=== PATIENT | male | born 1980 | race Caucasian/White ===

== ENCOUNTER 2017-06-17 14:57 | Emergency (ER) | payer SELFPAY, OTHER ==
[2017-06-17] MEDS: IBUPROFEN 600 MG TABLET. PO (16:15)
[2017-06-17] MEDS: ONDANSETRON PF 4 MG/2 ML VIAL. IV (17:51)
[2017-06-17] MEDS: fentaNYL PF VIAL 100 MCG/2 ML VIAL IV (17:54)
== END 2017-06-17 20:47 | disposition home or self-care (01) ==
LOC: ER 14:57
DX: S62.316A Displaced fracture of base of fifth metacarpal bone, right hand, initial encounter for closed fracture (principal); S43.101A Unspecified dislocation of right acromioclavicular joint, initial encounter; S16.1XXA Strain of muscle, fascia and tendon at neck level, initial encounter; S09.90XA Unspecified injury of head, initial encounter; T71.9XXA Asphyxiation due to unspecified cause, initial encounter; F31.9 Bipolar disorder, unspecified; F12.10 Cannabis abuse, uncomplicated; F10.20 Alcohol dependence, uncomplicated; Z91.013 Allergy to seafood; Y04.0XXA Assault by unarmed brawl or fight, initial encounter; V43.52XA Car driver injured in collision with other type car in traffic accident, initial encounter; Y93.I9 Activity, other involving external motion; Y92.410 Unspecified street and highway as the place of occurrence of the external cause; Y99.8 Other external cause status
CPT/HCPCS: 29125; 70450; 71045; 72040; 72125; 72141; 73030; 73110; 73130; 96374; 96375; 99284-25; J2405; J3010

== ENCOUNTER 2017-11-25 00:36 | Emergency (ER) | payer SELFPAY ==
[~2017-11-25] VITALS: Ht 175.3 cm; Wt 65.8 kg
[~2017-11-25 00:36] MED LIST: NAPR375T5 PO; OXYC-323 PO
[2017-11-25 00:40] VITALS: BP 127/80
[2017-11-25] MEDS ORDERED: LIDOCAINE 1%/EPI 1:100,000 20 ML VIAL. INJ ONE (01:30)
[2017-11-25] MEDS ORDERED: NEOMY/BACITR/POLYMYXIN OINT PACKET. TP ONE (01:30)
--- NOTE | 2017-11-25 02:33 | PHYS DOC ---
Past Medical History Past Medical History: Bipolar Additional Past Medical Histor: BIPOLAR Past Surgical History: Other Additional Past Surgical Histo: "VERICOUS VEIN" TO TESTICLE Alcohol Use: Heavy Drug Use: Marijuana, Methamphetamine Adult General Chief Complaint Chief Complaint: LACERATION/AVULSION HPI HPI Patient is a 37-year-old male who presents to the emergency department complaining of a cut on the palm of his right hand. Patient states that he was installing a mirror in his home when he pushed too hard and it broke and cut his hand. Review of Systems Review of Systems Constitutional: Denies fever or chills [] Respiratory: Denies cough or shortness of breath [] Cardiovascular: Denies chest pain and palpitations[] Integument: Complains of laceration on palm of right hand[] Complete systems were reviewed and found to be within normal limits, except as documented in this note. Current Medications Current Medications Current Medications Medications (Trade) Dose Ordered Sig/Liyah Start Time Stop Time Status Last Admin Dose Admin Lidocaine/ Epinephrine (LIDOCAINE 1%-EPI 1:100,000 Multi-Dose) 20 ml 1X ONCE 11/25/17 01:30 11/25/17 01:31 DC 11/25/17 01:18 20 ML Neomycin/ Polymyxin/ Bacitracin (Triple Antibiotic Ointment) 1 pkt 1X ONCE 11/25/17 01:30 11/25/17 01:31 DC 11/25/17 01:18 1 PKT Allergies Allergies Allergies Coded Allergies Type Severity Reaction Last Updated Verified shellfish derived Allergy Severe HIVES, RASH, SWELLING 06/17/17 Yes Physical Exam Physical Exam Constitutional: Well developed, well nourished, no acute distress, non-toxic appearance. [] HENT: Linear laceration through the superior aspect of the antihelix. Skin folds aligned in linear fashion with no malalignment. Eyes: PERRL, EOMI [] Neck: Normal range of motion, no tenderness, supple, no stridor. [] Cardiovascular:Heart rate regular rhythm, no murmur [] Lungs & Thorax: Bilateral breath sounds clear to auscultation [] Skin: Warm, dry. 4 cm laceration on anterior aspect of right hand. No residual pieces of glass are noted. [] Extremities: No tenderness, no cyanosis, no clubbing, ROM intact, no edema. [] Neurologic: Alert and oriented X 3, normal motor function, normal sensory function, no focal deficits noted. [] Current Patient Data Vital Signs Vital Signs Date Time Temp Pulse Resp B/P (MAP) Pulse Ox O2 Delivery O2 Flow Rate FiO2 11/25/17 00:40 98.2 110 16 127/80 (96) 97 Room Air 98.2 EKG EKG [] Radiology/Procedures Radiology/Procedures [] Course & Med Decision Making Course & Med Decision Making Pertinent Labs and Imaging studies reviewed. (See chart for details) Patient is a 37-year-old male who presents to the emergency department complaining of a laceration on the anterior aspect of his right hand after being cut by a broken mirror. X-ray of the hand was ordered and no visible remnants of glass were found. The laceration was repaired with 6 stitches. He also had a small laceration on the antihelix of his right ear. The patient desired to let this laceration heal by secondary intent. The skin folds were properly aligned and it was determined that it would require no stitches. Patient stable for discharge with outpatient follow-up with PCP. Discussed findings and plan with patient and family, who acknowledge understanding and agreement. Dragon Disclaimer Dragon Disclaimer This electronic medical record was generated, in whole or in part, using a voice recognition dictation system. Laceration/Wound Repair Laceration/Wound Repair : Wound Location: upper extremity Wound's Depth, Shape: flap Wound Length (cm): 4 Wound Explored: no foreign body removed Betadine Prep?: Yes Anesthesia: Lidocaine w/ Epi Wound Debrided: minimal Wound Repaired With: sutures Suture Size/Type: 4:0, nylon Number of Sutures: 6 Sterile Dressing Applied?: Yes Progress 1 laceration on anterior aspect of right hand. 4cm in size and repaired with 6 stitches. Departure Departure Impression: Primary Impression: Hand laceration Additional Impression: Laceration of ear Disposition: 01 HOME, SELF-CARE Condition: STABLE Referrals: NO PCP (PCP) Patient Instructions: Laceration Care, Adult, [id number] Additional Instructions: Do not soak your wound. You may shower. Clean wound daily with soap and water. Change dressing 2 times daily. Use over the counter antibiotic ointment with each dressing change. Sutures need to be removed in 7-10 days. Present to your family doctor or local urgent care for removal. You may also present to the ED but it will be an additional visit/charge. After suture removal you may use Vitamin E ointment to soften the wound and prevent scarring. Problem Qualifiers Primary Impression: Hand laceration Encounter type: initial encounter Foreign body presence: without foreign body Laterality: right Qualified Codes: S61.411A - Laceration without foreign body of right hand, initial encounter Additional Impression: Laceration of ear Encounter type: initial encounter Laterality: right Qualified Codes: S01.311A - Laceration without foreign body of right ear, initial encounter RICHAR LEHMAN DO Nov 25, 2017 02:33
--- NOTE | 2017-11-25 09:03 | RAD ---
Right hand 3 views: Reason for examination: Laceration on glass to the palm at the mid hand. Evaluate for foreign body. Comparison is made to previous study dated 06/17/2017. No acute fracture or dislocation is present. There is however healed fracture at the fifth metacarpal bone with some periosteal new bone formation. The bone density is normal. Joint spaces are maintained. No radiopaque foreign bodies are identified. IMPRESSION: Old fracture at the fifth metacarpal bone. No radiopaque foreign bodies evident. Electronically signed by: Marsha Gil MD (11/25/2017 8:59 AM) [facility]
== END 2017-11-25 02:51 | disposition home or self-care (01) ==
LOC: ER 00:36
DX: S61.411A Laceration without foreign body of right hand, initial encounter (principal); S01.311A Laceration without foreign body of right ear, initial encounter; F31.9 Bipolar disorder, unspecified; F10.10 Alcohol abuse, uncomplicated; Y90.9 Presence of alcohol in blood, level not specified; Z91.013 Allergy to seafood; W26.8XXA Contact with other sharp object(s), not elsewhere classified, initial encounter; Y93.89 Activity, other specified; Y92.89 Other specified places as the place of occurrence of the external cause; Y99.8 Other external cause status
CPT/HCPCS: 12002; 73130; 99284; J3490